=== PATIENT | female | born 2000 | race Asian ===

== ENCOUNTER 2021-03-07 11:59 | Inpatient (IN) | payer OTHER ==
[~2021-03-07] VITALS: Ht 152.4 cm; Wt 49.9 kg
[2021-03-07] MEDS ORDERED: SERT-158 PO (12:12)
[2021-03-07 12:37] LABS: BASOPHILS % (AUTO) 0.5 % (0.0-2.0); EOSINOPHILS % (AUTO) 1.5 % (1.0-6.0); HEMATOCRIT 41.3 % (36-46); HEMOGLOBIN 13.4 g/dL (12.0-16.0); LYMPHOCYTES # (AUTO) 2.2 K/uL (1.0-4.8); LYMPHOCYTES % (AUTO) 23.2 % (22.0-44.0); MEAN CORPUSCULAR HEMOGLOBIN 24.3 pg (26.0-34.0); MEAN CORPUSCULAR HGB CONC 32.6 G/dL (31.0-37.0); MEAN CORPUSCULAR VOLUME 75 fL (80-100); MONOCYTES # (AUTO) 0.6 K/uL (0.1-1.0); MONOCYTES % (AUTO) 6.1 % (2.0-9.0); NEUTROPHILS # (AUTO) 6.6 K/uL (1.8-7.7); NEUTROPHILS % (AUTO) 68.7 % (40.0-70.0); PLATELET COUNT (AUTO) 326 K/uL (150-450); RED BLOOD CELL COUNT(AUTO) 5.54 MIL/uL (4.00-5.20); RED CELL DISTRIBUTION WIDTH 13.8 % (11.5-14.5)
[2021-03-07 12:46] LABS: ANION GAP 10 mmol/L (8-16); CALCIUM, TOTAL 9.6 mg/dL (8.8-10.5); CARBON DIOXIDE 27 mmol/L (22-29); CHLORIDE 105 mmol/L (98-107); CREATININE 0.63 mg/dL (0.60-1.30); GLOMERULAR FILTR. RATE CALC > 60 mL/min (>60); GLUCOSE,RANDOM 98 mg/dL (70-110); POTASSIUM 5.1 mmol/L (3.5-5.1); SODIUM SERUM 142 mmol/L (136-145); UREA NITROGEN, BLOOD 7 mg/dL (7-18)
[2021-03-07 12:52] LABS: ALANINE AMINOTRANSFERASE 13 U/L (12-78); ALBUMIN 4.2 g/dL (3.4-5.0); ALKALINE PHOSPHATASE 68 U/L (46-116); ASPARTATE AMINOTRANSFERASE 21 U/L (15-37); BILIRUBIN,TOTAL 0.2 mg/dL (0.1-1.0); TOTAL PROTEIN, SERUM 8.7 g/dL (6.4-8.2)
[2021-03-07 13:06] LABS: AMPHET/METH SCREEN,URINE NEGATIVE (NEGATIVE); BARBITURATE SCREEN, URINE NEGATIVE (NEGATIVE); BENZODIAZEPINES SCREEN,URINE NEGATIVE (NEGATIVE); CANNABINOID SCREEN,URINE POSITIVE (NEGATIVE); COCAINE SCREEN,URINE NEGATIVE (NEGATIVE); METHADONE SCREEN, URINE NEGATIVE (NEGATIVE); OPIATE SCREEN,URINE NEGATIVE (NEGATIVE)
[2021-03-07 13:08] LABS: PHENCYCLIDINE SCREEN,URINE NEGATIVE (NEGATIVE)
[2021-03-07 14:30] LABS: COVID AG,FIA SOURCE NASOPHARYNGEAL
[2021-03-07] MEDS ORDERED: ZOLPIDEM TARTRATE 10 MG TABLET PO PRN (14:30)
[2021-03-07] MEDS ORDERED: HALOPERIDOL 5 MG TABLET PO PRN (14:30)
[2021-03-07] MEDS ORDERED: LORazepam 2 MG TABLET PO PRN (14:30)
[2021-03-07 18:15] VITALS: BP 136/84
[2021-03-08 08:00] VITALS: BP 102/72
[2021-03-08 09:11] LABS: CHOL/HDL RATIO 3.4 (3.9-5.7)
[2021-03-08] MEDS ORDERED: DOCUSATE SODIUM 100 MG CAPSULE PO PRN (12:30)
[2021-03-08] MEDS ORDERED: BENZOCAINE/MENTHOL LOZENGE PO PRN (12:30)
[2021-03-08] MEDS ORDERED: BACITRACIN 28 GM OINTMENT TP PRN (12:30)
[2021-03-08] MEDS ORDERED: IBUPROFEN 600 MG TABLET PO PRN (12:30)
[2021-03-08] MEDS ORDERED: LOPERAMIDE HCL 2 MG CAPSULE PO PRN (12:30)
[2021-03-08] MEDS ORDERED: MAGNESIUM HYDROXIDE SUSPENSION 30 ML UDCUP PO PRN (12:30)
[2021-03-08] MEDS ORDERED: CloNIDine HCL 0.1 MG TABLET PO PRN (12:30)
[2021-03-08] MEDS ORDERED: ACETAMINOPHEN 325 MG TABLET PO PRN (12:30)
[2021-03-08] MEDS ORDERED: ALBUTEROL SULFATE HFA 90 MCG/PUFF 8 GM INHALER IH PRN (12:30)
[2021-03-08] MEDS ORDERED: MAG HYDROX/AL HYDROX/SIMETH ES 30 ML SUSPENSION UDCUP PO PRN (12:30)
[2021-03-08] MEDS ORDERED: PETROLATUM,WHITE 28 GM JELLY TP PRN (12:30)
[2021-03-08] MEDS ORDERED: OMEPRAZOLE 20 MG CAPSULE PO PRN (12:30)
[2021-03-08] MEDS ORDERED: ONDANSETRON HCL 4 MG TABLET PO PRN (12:30)
[2021-03-08] MEDS: SERTRALINE HCL 50 MG TABLET PO SCH (14:19)
[2021-03-08 16:45] VITALS: BP 103/77
[2021-03-09 08:30] VITALS: BP 136/80
[2021-03-09] MEDS: OMEGA-3/DHA/EPA/FISH OIL 1,000 MG CAPSULE PO SCH (09:10)
[2021-03-09] MEDS: SERTRALINE HCL 50 MG TABLET PO SCH (09:10)
[2021-03-09] MEDS: RisperiDONE 1 MG TABLET PO SCH (12:15)
[2021-03-09 16:11] VITALS: BP 126/65
[2021-03-10] MEDS: SERTRALINE HCL 50 MG TABLET PO SCH (09:16)
[2021-03-10] MEDS: OMEGA-3/DHA/EPA/FISH OIL 1,000 MG CAPSULE PO SCH (09:17)
[2021-03-10] MEDS: RisperiDONE 1 MG TABLET PO SCH (09:17)
[2021-03-10 09:53] VITALS: BP 112/63
[2021-03-11 09:16] VITALS: BP 113/76
[2021-03-11] MEDS: RisperiDONE 1 MG TABLET PO SCH (10:13)
[2021-03-11] MEDS: SERTRALINE HCL 50 MG TABLET PO SCH (10:13)
[2021-03-11] MEDS: OMEGA-3/DHA/EPA/FISH OIL 1,000 MG CAPSULE PO SCH (10:13)
[2021-03-12] MEDS ORDERED: RisperiDONE 2 MG TABLET PO SCH (09:00)
[2021-03-12] MEDS: OMEGA-3/DHA/EPA/FISH OIL 1,000 MG CAPSULE PO SCH (10:06)
[2021-03-12] MEDS: SERTRALINE HCL 50 MG TABLET PO SCH (10:06)
[2021-03-12 11:00] VITALS: BP 117/67
[2021-03-12] MEDS ORDERED: RISP1TAB48 PO (11:56)
[2021-03-12] MEDS ORDERED: RisperiDONE 1 MG TABLET PO SCH (17:00)
== END 2021-03-12 14:30 | disposition home or self-care (01) | DRG 881 ==
LOC: EMS 12:08 → 3EI 16:40
PROVIDERS: ADMIT Psychiatry & Neurology Psychiatry; ATTEND Psychiatry & Neurology Psychiatry
DX: F32.9 Major depressive disorder, single episode, unspecified (principal); R45.851 Suicidal ideations; F12.90 Cannabis use, unspecified, uncomplicated; Z20.822 Contact with and (suspected) exposure to COVID-19; F41.9 Anxiety disorder, unspecified; G47.00 Insomnia, unspecified; K59.00 Constipation, unspecified; Z79.899 Other long term (current) drug therapy; Z71.51 Drug abuse counseling and surveillance of drug abuser
CPT/HCPCS: 80053; 80061; 84703; 85025; 99285; G0480